=== PATIENT | female | born 1945 | race Caucasian/White ===

== ENCOUNTER 2022-09-23 14:33 | Emergency (ER) | payer MEDICARE ==
[~2022-09-23] VITALS: Ht 149.9 cm; Wt 54.4 kg
[2022-09-23] MEDS ORDERED: OMEP20CA15 PO (15:10)
[2022-09-23] MEDS ORDERED: AMLO-212 PO (15:10)
[2022-09-23] MEDS ORDERED: ZOLP5TAB8 PO (15:10)
[2022-09-23] MEDS ORDERED: SIMV10TA98 PO (15:10)
[2022-09-23] MEDS ORDERED: CELE200C PO (15:10)
[2022-09-23] MEDS ORDERED: LEVO75TA7 PO (15:10)
[2022-09-23] MEDS ORDERED: OLME1TAB90 PO (15:10)
[2022-09-23 15:23] LABS: BASOPHILS % (AUTO) 0.3 % (0.0-2.0); EOSINOPHILS % (AUTO) 0.4 % (0.0-7.0); HEMATOCRIT 38.2 % (31.2-41.9); HEMOGLOBIN 12.5 g/dL (10.9-14.3); LYMPHOCYTES # (AUTO) 1.9 K/uL (0.8-4.8); LYMPHOCYTES % (AUTO) 17.2 % (20.5-51.5); MEAN CORPUSCULAR HEMOGLOBIN 29.5 uug (24.7-32.8); MEAN CORPUSCULAR HGB CONC 33 g/dL (32.3-35.6); MEAN CORPUSCULAR VOLUME 90.4 fL (75.5-95.3); MONOCYTES # (AUTO) 0.6 K/uL (0.1-1.30); MONOCYTES % (AUTO) 4.9 % (0.0-11.0); NEUTROPHILS # (AUTO) 8.6 K/uL (1.8-8.9); NEUTROPHILS % (AUTO) 77.2 % (38.5-71.5); PLATELET COUNT (AUTO) 282 K/uL (179-408); RED BLOOD CELL COUNT(AUTO) 4.23 MIL/uL (3.63-4.92); RED CELL DISTRIBUTION WIDTH 13.4 % (12.3-17.7); WHITE BLOOD COUNT (AUTO) 11.2 K/uL (3.8-11.8)
[2022-09-23 15:28] LABS: DIFFERENTIAL COMMENT 1
[2022-09-23 15:32] LABS: CALCIUM 9.1 mg/dL (8.5-10.1); CARBON DIOXIDE 24 mmol/L (21-32); CHLORIDE 105 mmol/L (98-107); CREATININE 0.8 mg/dL (0.6-1.3); GLUCOSE 132 mg/dL (74-106); POTASSIUM 4.4 mmol/L (3.5-5.1); SODIUM SERUM 139 mmol/L (136-145); UREA NITROGEN, BLOOD 36 mg/dL (7-18)
[2022-09-23 15:36] LABS: *BILIRUBIN,URIN NEGATIVE (NEGATIVE); *BLOOD, URINE NEGATIVE (NEGATIVE); *CLARITY,URINE CLEAR (CLEAR); *COLOR,URINE YELLOW (YELLOW); *KETONES,URINE NEGATIVE (NEGATIVE); *PROTEIN,URINE NEGATIVE (NEGATIVE); *UROBILINOGEN,URINE 0.2 E.U./dl (NORMAL); LEUKOCYTE ESTERASE ,URINE TRACE (NEGATIVE); NITRITE, URINE NEGATIVE (NEGATIVE); PH,URINE 5.5 (5.0-8.0); UGLUCOSE NEGATIVE (NEGATIVE)
[2022-09-23 15:38] LABS: ALANINE AMINOTRANSFERASE 21 U/L (14-59); ALBUMIN 3.6 g/dL (3.4-5.0); ALKALINE PHOSPHATASE 59 U/L (50-136); ASPARTATE AMINOTRANSFERASE 8 U/L (15-37); BILIRUBIN,DIRECT 0.1 mg/dL (0.0-0.2); BILIRUBIN,TOTAL 0.3 mg/dL (0.2-1.0); LIPASE 98 U/L (73-393); TOTAL PROTEIN, SERUM 6.6 g/dL (6.4-8.2)
[2022-09-23 15:38] LABS: RBC,URINE 0-3 /HPF (0-3)
[2022-09-23 15:39] LABS: BACTERIA,URINE NONE SEEN /HPF (NONE SEEN); SQUAMOUS EPITHELIAL CELL,UR FEW /HPF (NONE SEEN)
[2022-09-23] MEDS ORDERED: ONDANSETRON 4 MG/2 ML VIAL ONE (15:50)
[2022-09-23] MEDS ORDERED: KETOROLAC TROMETHAMINE 15 MG INJ ONE (15:50)
[2022-09-23] MEDS ORDERED: ACETAMINOPHEN ES 500 MG TABLET ONE (15:50)
[2022-09-23] MEDS: IV NORMAL SALINE 1000 ML BAG IV ONE (15:54)
[2022-09-23] MEDS: ONDANSETRON 4 MG/2 ML VIAL IV ONE (15:54)
[2022-09-23] MEDS: ACETAMINOPHEN ES 500 MG TABLET PO ONE (15:54)
[2022-09-23] MEDS: KETOROLAC TROMETHAMINE 15 MG INJ IVP ONE (15:55)
[2022-09-23] MEDS ORDERED: CEFTRIAXONE /D5W 50ML IVPB **ER PYXIS IV ONE ×2 (16:09→16:11)
[2022-09-23] MEDS: CEFTRIAXONE 1 G in IV DEXTROSE 5% 50 ML IV ONE (16:15)
[2022-09-23] MEDS ORDERED: HYDR-3974 PO (16:56)
[2022-09-23] MEDS ORDERED: ONDA4TAB5 PO (16:56)
[2022-09-23] MEDS ORDERED: CEPH500T PO (16:56)
[2022-09-23 17:28] VITALS: BP 125/73; O2SAT 98
[2022-09-23] MEDS ORDERED: HYDR-3980 PO (19:18)
== END 2022-09-23 17:28 | disposition home or self-care (01) ==
LOC: ER 14:33
DX: N12 Tubulo-interstitial nephritis, not specified as acute or chronic (principal); N39.0 Urinary tract infection, site not specified; I10 Essential (primary) hypertension; E78.5 Hyperlipidemia, unspecified; K21.9 Gastro-esophageal reflux disease without esophagitis; E03.9 Hypothyroidism, unspecified; Z88.2 Allergy status to sulfonamides; Z79.899 Other long term (current) drug therapy
CPT/HCPCS: 99285; 74176; 96365; 96375; 80076; 80048; 81001; 83690; 85025; 36415; 93005; 87040; J0696 ×2; J1885; J2405; J7040; A4663; A9150